=== PATIENT | female | born 1945 | race Caucasian/White ===

== ENCOUNTER 2023-08-28 08:09 | Day surgery (SDC) | payer OTHER ==
[2023-08-23 11:22] VITALS: BMI 28.5
[2023-08-28] MEDS ORDERED: PROPOFOL 40 ML ONE (08:45)
[2023-08-28] MEDS ORDERED: ONDANSETRON 4 MG/2 ML VIAL ONE (08:45)
[2023-08-28] MEDS ORDERED: DEXAMETHASONE SOD PHOSPHATE 4 MG/1 ML VIAL ONE (08:45)
[2023-08-28] MEDS ORDERED: ceFAZolin SODIUM 1 GM VIAL ONE ×2 (08:45→09:49)
[2023-08-28] MEDS ORDERED: MIDAZOLAM HCL 2 MG/2 ML SINGLE DOSE VIAL ONE (08:46)
[2023-08-28] MEDS ORDERED: TETRACAINE 0.5% OPHTH SOLN 2 ML BOTTLE ONE (09:49)
[2023-08-28] MEDS ORDERED: LIDOCAINE 1%/EPI 1:100000 (50 ML MULTI DOSE VIAL) ONE (09:49)
[2023-08-28] MEDS ORDERED: POVIDONE-IODINE 5% OPHTHALMIC PREP 30 ML SOLUTION ONE (09:49)
[2023-08-28] MEDS ORDERED: ERYTHROMYCIN 0.5% OPHTHALMIC OINTMENT 3.5 GM TUBE ONE (09:49)
[2023-08-28] MEDS ORDERED: BUPIVACAINE HCL/PF 0.5% (5MG/ML) 10 ML VIAL ONE (09:49)
[2023-08-28] MEDS ORDERED: PROPOFOL 20 ML ONE ×3 (11:18→12:07)
[2023-08-28] MEDS ORDERED: ONDANSETRON 4 MG/2 ML VIAL IVPUSH PRN (12:49)
[2023-08-28] MEDS ORDERED: ACETAMINOPHEN 1000 MG/100 ML BAG IVPB ONE (12:50)
[2023-08-28] MEDS ORDERED: LACTATED RINGERS SOLUTION 1,000 ML IV SCH (13:00)
[2023-08-28 13:37] VITALS: RESP 16; TEMP 98.6
[2023-08-28 14:07] VITALS: BP 154/81; PULSE 74
== END 2023-08-28 14:20 | disposition home or self-care (01) ==
LOC: FASU 08:09
PROVIDERS: ATTEND Ophthalmology
PROC: 0KX10ZZ Transfer Facial Muscle, Open Approach (ICD-10-PCS; 2023-08-28)
PROC: 08BP0ZZ Excision of Left Upper Eyelid, Open Approach (ICD-10-PCS; principal; 2023-08-28 11:03)
DX: C44.1191 Basal cell carcinoma of skin of left upper eyelid, including canthus (principal)
CPT/HCPCS: 94760